=== PATIENT | female | born 1955 | race Caucasian/White ===

== ENCOUNTER 2020-05-30 21:20 | Emergency (ER) | payer OTHER, SELFPAY ==
[2020-05-30 21:30] VITALS: BP 172/97; PULSE 78; RESP 16; TEMP 36.6; O2SAT 98
--- NOTE | 2020-05-30 21:58 | ED.GENADUL_ITS ---
Discharge Plan Disposition Patient Disposition: HOME Condition: Stable Discharge Details Chief Complaint: Orthopedic Clinical Impression: Calcaneus fracture, right, Contusion of knee, left Primary Care Provider: [facility],Local ED Provider: Justin Lewis Discharge Instructions Instructions: Calcaneal Fracture (ED) Additional Instructions: do not apply weight to the foot until seen by orthopedics and follow up as soon as possible. If you change your plans call orthopedics here for an appointment if you have severe worsening pain return to the emergency department Referrals: Efraín Conti MD [ [facility] STAFF PHYSICIAN] - Discharge Data Discharge Date/Time-TO BE ENTERED AT DEPARTURE: 05/31/20 01:12 Medical Decision Making <RUFINA Beltran - Last Filed: 06/01/20 21:59> Patient is a pleasant 64-year-old female, recently in this area from [facility], presenting today after fall. She reports that she went up a flight of stairs which she reports approximately 6 feet. The top of this area did not have any railing Patient misstepped falling off of the landing. States that she landed on her right heel and right hip primarily. She denies any head trauma. Did not injure her neck or back. She denies any chest, abdomen pelvic pain. Noted ecchymosis and abrasion to the right hip where she struck a chainsaw when falling. Her primary source of pain is in the right heel. She reports that has not been able to bear weight on the heel secondary to this pain. Also endorsing pain in the left knee primarily on the lateral patella. She is endorsing some numbness in the heel but not in the remaining of the right foot. On exam, patient is resting comfortably. She has normal head, neck, back exam. Of note, no midline tenderness, step-off, full range of motion of the lumbar and thoracic spine. She has abrasions and ecchymosis on the right hip with full range of motion and no pain with axial loading. She only reporting much superf icial discomfort in this area. Do not see any evidence to suggest a deep space injury. She is exquisitely tender with gentle palpation of the calcaneus. She has no tenderness with lateral pressure. Achilles is normal, sensation in the foot is normal, she is able to move her toes, good movement in the ankle. Exam the left knee reveals ecchymosis and discomfort of the lateral patella/lateral femoral condyle. Full range of motion, no effusion, ligaments intact. Patient is not up-to-date on tetanus, will update patient's current. Will give Tylenol and ibuprofen for discomfort. Wounds of the right hip will be cleansed. I am concerned potential calcaneal fracture will obtain both CT and x-ray. I am attempting to reduce the transfer from radiology to the department as the patient has been in the [place] [id number] area. Also obtain imaging of the left knee. Discussed this plan with the patient who is in agreement. At the end of my shift compression additional Dr. Lewis with imaging pending. <Justin Lewis MD - Last Filed: 05/31/20 01:02> pt remains stable with no new pain no midline spine pain anywhere. Left knee xray without fx/dislocation and has full rom of this knee. CT of the ankle shows likely nondisplaced calcaneus fx. Placedin posterior ankle splint and she is returning to CT in 1-2 days so is going to f/u with ortho [place] there [place]. Return precautions given. Opiates offered but she declined. Imaging Data Radiologic Study: Attestation: I personally reviewed and interpreted this imaging study as follows: Imaging: CT Scan Radiologist's impression: PROCEDURE INFORMATION: Exam: CT Right Lower Extremity Without Contrast, Foot Exam date and time: 05/30/2020 10:27 PM Age: 64 years old Clinical indication: Right; Prior surgery; Surgery date: 6+ months; Surgery type: Bunion surgery; Patient HX: Extreme heel pain after fall TECHNIQUE: Imaging protocol: CT of the Right lower extremity without contrast was performed. Exam focused on the foot. Radiation optimization: All CT scans at this facility use at least one of these dose optimization techniques: automated exposure control; mA and/or kV adjustment per patient size (includes targeted exams where dose is matched to clinical indication); or iterative reconstruction. COMPARISON: No relevant prior studies available. FINDINGS: Bones/joints: An acute to subacute non-displaced fracture is seen within the base of the anterior process the calcaneus. Two surgical screws are seen within the distal 5th metatarsal, consistent with a prior bunionectomy. No tarsal-metatarsal subluxation. The talar dome is normal appearance without evidence for underlying osteochondral lesion. Soft tissues: Thickening of the distal Achilles tendon suggesting tendinosis, possibly superimposed on tendinitis. Edema is seen within the plantar calcaneal fat pad, with edema tracking along the calcaneal attachment of the plantar fascia. This can be seen with plantar fasciitis. IMPRESSION: 1. Acute to subacute nondisplaced fracture within the anterior process of the calcaneus. No additional fracture. 2. Edema within the plantar/calcaneal fat pad extending along the plantar fascia. These findings can be seen with plantar fasciitis. 3. Thickening of the distal Achilles tendon, suggesting tendinosis with possible superimposed tendinitis. 4. Expected postoperative changes within the 5th metatarsal without evidence for complication. Radiologic Study #2: Attestation: I personally reviewed and interpreted this imaging study as follows: Imaging: X-Ray Radiologist's impression: PROCEDURE INFORMATION: Exam: XR Left Knee Exam date and time: 05/30/2020 12:17 AM Age: 64 years old Clinical indication: Left; Patient HX: Knee pain after fall TECHNIQUE: Imaging protocol: XR Left knee. Views: 4 or more views. COMPARISON: No relevant prior studies available. FINDINGS: Bones/joints: Normal. No evidence for acute fracture or subluxation. No joint effusion. Soft tissues: Mild soft tissue edema is seen overlying the patella and patellar tendon. IMPRESSION: Mild soft tissue edema overlying the patella and patellar tendon which may represent a soft tissue contusion. No evidence for an underlying fracture. Radiologic Study #3: Attestation: I personally reviewed and interpreted this imaging study as follows: Imaging: X-Ray Radiologist's impression: Exam: XR Right Calcaneus Exam date and time: 05/30/2020 11:39 PM Age: 64 years old Clinical indication: Right; Patient HX: Heel pain after fall TECHNIQUE: Imaging protocol: XR of the Right calcaneus. Views: 2 or more views. COMPARISON: CT LOWER EXTREMITY RT WO 05/30/2020 11:07 PM FINDINGS: Bones/joints: A nondisplaced fracture is seen within the base of the anterior process of the calcaneus, best seen on the CT images. Postoperative changes are seen within the distal 5th metatarsal. Soft tissues: Edema and thickening within the plantar/calcaneal fat pad. IMPRESSION: 1. Nondisplaced fracture within the base of the anterior process of the calcaneu s. 2. Edema within the calcaneal/plantar fat pad, which can be seen with plantar fasciitis. HPI <RUFINA Beltran - Last Filed: 06/01/20 21:59> General Mode of arrival: wheelchair . Date/Time Provider Initiated Documentation: 05/30/20 21:58 . Limitations to Documentation: no limitations . Information obtained by: patient and RN notes reviewed . History of Present Illness 64 year old F presents to the emergency department with the chief complaint of right heel and hip pain, left knee pain, described as severe, with intensity rated at 8 (maximal in right heel). Quality is described as aching, Patient reports no radiation. Patient started experiencing this minute(s) and it has been constant. Immobilization improves symptom(s), Movement worsens symptoms . Patient notes denies confusion, chest pain, cough, headaches, nausea/vomiting, shortness of breath, syncope and weakness. Patient did receive the following treatments prior to arrival, none Related Data Allergies Allergy/AdvReac Type Severity Reaction Status Date / Time bacitracin Allergy Unverified 05/30/20 21:36 neomycin Allergy Unverified 05/30/20 21:36 [From Neosporin ([id number])] General Stated Complaint: Orthopedic SHANIQUA: 3 Review of Systems <RUFINA Beltran - Last Filed: 06/01/20 21:59> Constitutional Constitutional: Reports as per HPI, Denies chills, Denies fatigue, Denies fever(s), Denies headache(s) and Denies weakness Eyes Eyes: Reports as per HPI, Denies blurry vision, Denies change in vision and Denies loss of vision ENT Ears, Nose, Mouth, and Throat: Denies abnormal hearing and Denies headache(s) Cardiovascular Cardiovascular: Reports as per HPI, Denies chest pain and Denies dyspnea Respiratory Respiratory: Reports as per HPI, Denies cough, Denies pain on inspiration, Denies pain with cough and Denies dyspnea Gastrointestinal Gastrointestinal: Reports as per HPI, Denies abdominal pain, Denies nausea and Denies vomiting Genitourinary Genitourinary: Reports as per HPI and Denies urinary incontinence Musculoskeletal Musculoskeletal: Reports as per HPI and Reports abnormal gait (states she has been ambulating with antalgic gait) Integumentary/Breasts Skin/Breast: Reports as per HPI, Reports unusual bruising (left knee and right hip) and Reports wounds (abrasions on right hip) Neurologic Neurologic: Reports as per HPI, Denies abnormal hearing, Denies abnormal movements, Denies abnormal speech, Reports abnormal gait (states she has been ambulating with antalgic gait), Denies headache(s), Denies lack of coordination, Denies localized weakness, Denies loss of vision, Denies seizure-like activity, Denies paresthesias and Denies weakness Endocrine Endocrine: Denies fatigue PFSH <RUFINA Beltran - Last Filed: 06/01/20 21:59> Social History Smoking/Tobacco Use Status: Never Alcohol Intake: current Alcohol Intake frequency: holidays/special occasions only Alcohol type: wine Substance use type: does not use Do you feel safe at home: Yes Do you feel safe in your relationship?: Yes Exam <RUFINA Beltran - Last Filed: 06/01/20 21:59> Const General: cooperative, healthy appearing, comfortable, no acute distress, well developed and well groomed Nutritional Appearance: average body habitus and well nourished Orientation: alert, awake and oriented x3 HENMT Head: normal to inspection, no palpable skull fracture, normocephalic and atraumatic Ears: hearing grossly normal bilaterally and TM's normal bilaterally Eyes General: appearance normal, both eyes and all related structures Neck Neck: normal visual inspection, full ROM, no lymphadenopathy, no meningeal signs, trachea midline and supple Chest Chest: normal inspection of the chest, normal palpation of entire chest wall, no crepitus and no localized rib tenderness Resp Effort & Inspection: normal respiratory effort, able to speak in complete sentences and no respiratory distress Auscultation: clear to auscultation bilaterally, no rales, no rhonchi and no wheezes Cardio Rate: regular rate Rhythm: regular rhythm Heart Sounds: S1 normal and S2 normal GI Inspection: normal to inspection, no abdominal wall ecchymosis, no edema and non-distended Palpation: soft, no hepatosplenomegaly, not firm, no guarding, no pulsatile masses, not rigid and nontender Auscultation: normal bowel sounds Back/Spine/Pelvis Back: no CVA tenderness Cervical Spine: normal cervical lordosis and cervical ROM normal Thoracic/Lumbar Spine: thoracic and lumbar spine normal to inspection, thoraco- lumbar ROM normal, No thoraco-lumbar ROM limited, No thoraco-lumbar spasm and No thoracic spinal tenderness Pelvis: no pain with anterior-posterior compression and no pain with lateral compression Skin General skin exam: ecchymosis (as below) Trauma: abrasion (multiple abrasions to right hip) Neuro General: patient alert, patient awake, patient oriented x3, gait normal, tone normal and moves all extremities Cranial Nerves: CN's II-XI intact bilaterally Cognition: normal cognition Speech: speech normal Motor: muscle tone normal throughout and strength 5/5 throughout Sensory Exam: no sensory deficits noted (no saddle paresthesias) Extrem General: normal to inspection, full ROM, capillary refill normal, no pedal edema and no calf tenderness Right upper extremity: normal to inspection Left upper extremity: normal to inspection Right lower extremity: full ROM, normal capillary refill, no joint enlargement, hip/thigh, knee Details: normal to inspection and normal ROM; no tenderness and no swelling, lower leg Details: normal to inspection and no edema; no tenderness, no palpable cords and no ecchymosis, ankle Details: normal to i nspection and no edema; no tenderness, no swelling, no lacerations, no ecchymosis, no crepitus and achilles tendon exam normal and foot Details: normal capillary refill, tenderness Location: of the calcaneus Details: point tende rness; none with a squeeze; not of the lateral foot, not of the medial foot, not of the mid foot and not of the base of the 5th metatarsal, toes with normal ROM, no edema, vascular exam Details: dorsalis pedis pulse present and normal capillary refill and motor-sensory exam Details: light-touch normal; no unusual warmth, no ecchymosis and no crepitus; no cyanosis Left lower extremity: full ROM, normal capillary refill, no joint enlargement, hip/thigh Details: normal to inspection, knee Details: abnormal to inspection (ecchymosis over patella), tenderness Location: of the patella Details: laterally, normal ROM and knee ligament exam normal Details: anterior drawer test normal, posterior drawer test normal, valgus stress test normal and varus stress test normal; pain with axial loading; no swelling, lower leg Details: normal to inspection and ankle; no cyanosis Upper/lower leg/hip images: 1. area of ecchymosis and swelling. Several superifical abrasions, none requiring closure, consistent with hitting chainsaw. Full ROM. No pain with this. No pain with axial loading. Able to abduct against resistant. IT band intact. Psych Appearance: grossly normal and well kempt Mental Status: mental status grossly normal Speech and Movement: speech and movement normal Course <RUFINA Beltran - Last Filed: 06/01/20 21:59> Vital Signs Vital signs: Respiratory Effort Non-Labored 05/30/20 21:34 Pain Level 8 05/30/20 21:30 Sign Out <RUFINA Beltran - Last Filed: 06/01/20 21:59> Sign Out Data: Sign Out Comment: Care transitioned to Dr. Lewis with imaging pending. Last updated by Camryn Chapman PA at 05/30/20 23:35
--- NOTE | 2020-05-30 22:15 | DI.RAD_ITS ---
EXAM: CT LOWER EXTREMITY RT WO CLINICAL HISTORY: fall on calcaneous TECHNIQUE: COMPARISON: CR,XR XR HEEL RT OS CALCIS from 05/30/2020 FINDINGS: CT foot and ankle and radiographs of the calcaneus were obtained. There is nondisplaced fracture ant erior process of the calcaneus. No other acute fracture identified. Prior 5th metatarsal fixation s crews in place noted. Minimal degenerative changes noted involving joints of the ankle and midfoot. IMPRESSION: RADIATION DOSE DELIVERED: 254.33mGy.cm Total DLP 254.33mGy.cm Total DLP 254.33mGy.cm Total DLP
--- NOTE | 2020-05-30 22:24 | DI.RAD_ITS ---
EXAM: XR KNEE LT 4V AP,LAT,JAVIER,PAT CLINICAL HISTORY: fall, lateral patellar pain TECHNIQUE: COMPARISON: No exams were available for comparison FINDINGS: Four views were obtained. There may be mild prepatellar edema. There is no evidence of acute fractu re or dislocation. IMPRESSION: RADIATION DOSE DELIVERED: Total DLP
[2020-05-30] MEDS: Acetaminophen 500 MG TAB 1000 MG PO (22:50)
[2020-05-30] MEDS: Ibuprofen 600 MG TAB PO (22:52)
--- NOTE | 2020-05-31 00:34 | DI.VRAD_ITS ---
PROCEDURE INFORMATION: Exam: CT Right Lower Extremity Without Contrast, Foot Exam date and time: 05/30/2020 10:27 PM Age: 64 years old Clinical indication: Right; Prior surgery; Surgery date: 6+ months; Surgery type: Bunion surgery; Patient HX: Extreme heel pain after fall TECHNIQUE: Imaging protocol: CT of the Right lower extremity without contrast was performed. Exam focused on the foot. Radiation optimization: All CT scans at this facility use at least one of these dose optimization techniques: automated exposure control; mA and/or kV adjustment per patient size (includes targeted exams where dose is matched to clinical indication); or iterative reconstruction. COMPARISON: No relevant prior studies available. FINDINGS: Bones/joints: An acute to subacute non-displaced fracture is seen within the base of the anterior process the calcaneus. Two surgical screws are seen within the distal 5th metatarsal, consistent with a prior bunionectomy. No tarsal-metatarsal subluxation. The talar dome is normal appearance without evidence for underlying osteochondral lesion. Soft tissues: Thickening of the distal Achilles tendon suggesting tendinosis, possibly superimposed on tendinitis. Edema is seen within the plantar calcaneal fat pad, with edema tracking along the calcaneal attachment of the plantar fascia. This can be seen with plantar fasciitis. IMPRESSION: 1. Acute to subacute nondisplaced fracture within the anterior process of the calcaneus. No additional fracture. 2. Edema within the plantar/calcaneal fat pad extending along the plantar fascia. These findings can be seen with plantar fasciitis. 3. Thickening of the distal Achilles tendon, suggesting tendinosis with possible superimposed tendinitis. 4. Expected postoperative changes within the 5th metatarsal without evidence for complication. Dictated and Authenticated by: Irene Ricardo MD. Ordering:CATARINA Cowan MD
--- NOTE | 2020-05-31 00:35 | DI.VRAD_ITS ---
PROCEDURE INFORMATION: Exam: XR Left Knee Exam date and time: 05/30/2020 12:17 AM Age: 64 years old Clinical indication: Left; Patient HX: Knee pain after fall TECHNIQUE: Imaging protocol: XR Left knee. Views: 4 or more views. COMPARISON: No relevant prior studies available. FINDINGS: Bones/joints: Normal. No evidence for acute fracture or subluxation. No joint effusion. Soft tissues: Mild soft tissue edema is seen overlying the patella and patellar tendon. IMPRESSION: Mild soft tissue edema overlying the patella and patellar tendon which may represent a soft tissue contusion. No evidence for an underlying fracture. Dictated and Authenticated by: Irene Ricardo MD. Ordering:CATARINA Cowan MD
--- NOTE | 2020-05-31 00:37 | DI.VRAD_ITS ---
PROCEDURE INFORMATION: Exam: XR Right Calcaneus Exam date and time: 05/30/2020 11:39 PM Age: 64 years old Clinical indication: Right; Patient HX: Heel pain after fall TECHNIQUE: Imaging protocol: XR of the Right calcaneus. Views: 2 or more views. COMPARISON: CT LOWER EXTREMITY RT WO 05/30/2020 11:07 PM FINDINGS: Bones/joints: A nondisplaced fracture is seen within the base of the anterior process of the calcaneus, best seen on the CT images. Postoperative changes are seen within the distal 5th metatarsal. Soft tissues: Edema and thickening within the plantar/calcaneal fat pad. IMPRESSION: 1. Nondisplaced fracture within the base of the anterior process of the calcaneus. 2. Edema within the calcaneal/plantar fat pad, which can be seen with plantar fasciitis. Dictated and Authenticated by: Irene Ricardo MD. Ordering:CATARINA Cowan MD
[2020-05-31 01:17] VITALS: BP 149/88; PULSE 83; RESP 16; O2SAT 97
== END 2020-05-31 01:12 | disposition home or self-care (01) ==
PROVIDERS: Emergency Provider Emergency Medicine
DX: S92.024A Nondisplaced fracture of anterior process of right calcaneus, initial encounter for closed fracture (principal); S70.211A Abrasion, right hip, initial encounter; S80.02XA Contusion of left knee, initial encounter; W13.9XXA Fall from, out of or through building, not otherwise specified, initial encounter; W29.3XXA Contact with powered garden and outdoor hand tools and machinery, initial encounter
CPT/HCPCS: 28400; 90471; 99284; 73564; 73650; 73700; 99282; E0114